=== PATIENT | male | born 1960 | race Caucasian/White ===

== ENCOUNTER 2017-05-13 19:31 | Emergency (ER) | payer MEDICARE, MEDICAID ==
[~2017-05-13] VITALS: Ht 190.5 cm; Wt 81.6 kg
[~2017-05-13 19:31] MED LIST: 8 HOUR PAIN RE650 M1 PO; ACETAMINOPHEN500 M3 PO; ALBUTEROL2 PUFFS/17 IN; ANORO ELLIPTA1 POW IH; ATIVAN1 M1 PO; AUGMENTIN 500 M1 TAB PO; AVPAK AZITHROM250 MG PO; BENADRYL 50MG C50 MG PO; BENZTROPINE 1MG1 MG PO; BENZTROPINE1 MG PO; CEFEPIME2 GM/100 M IV; COGENTIN GENERIC1 MG PO; DEPAKOTE 250MG250 MG PO; DEPAKOTE 500MG500 MG PO; DEPAKOTE DR500 MG PO; DESYREL50 MG PO; GENTAMICIN SUL IV; HALOPERIDOL 5MG.5 MG PO; HYDROXYZINE 25M25 MG PO; IBU800 M1 PO; IPRATROPIUM BROM3 M1 IH; LEVAQUIN500 MG PO; MEGACE ES625 MG/5 M PO; OLANZAPINE5 MG PO; OXYGEN IH; PREDNISONE 20MG20 MG PO; PREDNISONE20 MG PO; PROAIR HFA0.09 MG/AC IH; PROMETHAZINE HC25 M1 PO; PROVENTIL0.09 MG/A1 IH; PROZAC 20MG CAP20 MG PO; ZITHROMAX Z PA250 MG PO; ZOFRAN ODT8 MG PO; ZYPREXA20 M1 PO; [UNRECOGNIZED DRUG - OTHER] PO
--- OUTSIDE RECORDS SUMMARY | 2017-05-13 20:07 | External Medical Summary Rpt ---
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8 OTHER INJURY OF UNSPECIFIED BODY REGION W19.XXXA UNSPECIFIED FALL, INITIAL ENCOUNTER Allergies, Adverse Reactions, Alerts Type Allergy to substance Adverse Reaction to Substance Substance Reaction Severity NO KNOWN ALLERGIES Unknown Unknown Medications Na ND Rx Da Fi Fi Am Da Di Ph RX Ph St me C No te ll ll ou ys ag ar # ys at rm s nt no ma ic us Or Da si cy ia de te s n re d SO 00 08 0 No GIOVANNI 00 -0 -M 90 7- Lo ED 04 20 ng RO 72 13 er L 2 12 Ac 5 ti MG ve AL CE 00 08 0 No FT 40 -0 RI 97 7- Lo AX 33 20 ng ON 30 13 er E 4 1 Ac GM ti ve AL SO 00 08 0 No DI 40 -0 UM 97 7- Lo 10 20 ng CH 16 13 er LO 6 RI Ac DE ti ve 0. 9% SO LN LO 00 10 10 3 30 5 ME 59 AR Ac RA 59 -0 -0 .0 D 91 NO ti ZE 10 4- 4- 00 CA 69 LD ve PA 24 20 20 RE 8 M 11 11 11 RI 1 0 PH CH MG AR AR MA D TA CY W BL ET LL C 00 10 10 3 11 2 ME 59 AR Ac 12 -0 -0 8. D 91 NO ti 10 4- 4- 00 CA 56 LD ve 63 20 20 0 RE 6 80 11 11 RI 4 PH CH AR AR MA D CY W LL C DI 00 10 10 3 30 5 ME 59 AR Ac PH 90 -0 -0 .0 D 91 NO ti EN 42 4- 4- 00 CA 54 LD ve HY 05 [address] 66 11 11 RI AM 1 PH CH IN AR AR E MA D 50 CY W MG LL C CA PS UL E CA 00 10 10 3 60 5 ME 59 AR Ac LC 90 -0 -0 .0 D 91 NO ti IU 41 4- 4- 00 CA 54 LD ve M 25 20 20 RE 4 AN 89 11 11 RI TA 2 PH CH CI AR AR D MA D 50 CY W 0 MG LL C CH W TA B MA 00 10 10 3 40 5 ME 59 AR Ac PA 90 -0 -0 .0 D 91 NO ti P 41 4- 4- 00 CA 50 LD ve 32 98 20 20 RE 6 5 26 11 11 RI MG 1 PH CH AR AR TA MA D BL CY W ET LL C LO 00 09 09 3 15 3 ME 59 AR Ac RA 59 -0 -0 .0 D 13 NO ti ZE 10 6- 6- 00 CA 46 LD ve PA 24 20 20 RE 3 M 11 11 11 RI 1 0 PH CH MG AR AR MA D TA CY W BL ET LL C 00 08 08 3 11 5 ME 58 AR Ac 12 -2 -2 8. D 80 NO ti 10 5- 5- 00 CA 71 LD ve 63 20 20 0 RE 2 80 11 11 RI 4 PH CH AR AR MA D CY W LL C LO 00 08 08 3 21 7 ME 58 AR Ac RA 59 -0 -1 .0 D 16 NO ti ZE 10 3- 0- 00 CA 17 LD ve PA 24 20 20 RE 0 M 01 11 11 RI 0. 0 PH CH 5 AR AR MG MA D CY W TA BL LL ET C LO 00 08 08 3 21 7 ME 58 AR Ac RA 59 -0 -0 .0 D 16 NO ti ZE 10 3- 3- 00 CA 17 LD ve PA 24 20 20 RE 0 M 01 11 11 RI 0. 0 PH CH 5 AR AR MG MA D CY W TA BL LL ET C DI 00 08 08 3 20 5 ME 58 AR Ac PH 90 -0 -0 .0 D 16 NO ti EN 42 3- 3- 00 CA 24 LD ve HY 05 [address] 66 11 11 RI AM 1 PH CH IN AR AR E MA D 50 CY W MG LL C CA PS UL E 00 07 07 3 14 14 ME 57 AR Ac 06 -2 -2 .0 D 82 NO ti 76 2- 2- 00 CA 69 LD ve 07 20 20 RE 9 03 11 11 RI 0 PH CH AR AR MA D CY W LL C TH 00 08 08 3 30 30 ME 48 AR Ac ER 90 -3 -3 .0 D 06 NO ti A 40 0- 0- 00 CA 06 LD ve TA 53 20 20 RE 2 BL 96 10 10 RI ET 1 PH CH AR AR MA D CY W LL C TH 00 05 07 3 30 30 ME 44 AR Ac ER 90 -0 -3 .0 D 90 NO ti A 40 1- 1- 00 CA 09 LD ve TA 53 20 20 RE 6 BL 96 10 10 RI ET 1 PH CH AR AR MA D CY W LL C TH 00 05 07 3 30 30 ME 44 AR Ac ER 90 -0 -0 .0 D 90 NO ti A 40 1- 1- 00 CA 09 LD ve TA 53 20 20 RE 6 BL 96 10 10 RI ET 1 PH CH AR AR MA D CY W LL C TH 00 05 05 3 30 30 ME 44 AR Ac ER 90 -0 -3 .0 D 90 NO ti A 40 1- 1- 00 CA 09 LD ve TA 53 20 20 RE 6 BL 96 10 10 RI ET 1 PH CH AR AR MA D CY W LL C TH 00 05 05 3 30 30 ME 44 AR Ac ER 90 -0 -0 .0 D 90 NO ti A 40 1- 1- 00 CA 09 LD ve TA 53 20 20 RE 6 BL 96 10 10 RI ET 1 PH CH AR AR MA D CY W LL C TH 00 01 04 3 30 30 ME 41 AR Ac ER 90 -0 -0 .0 D 67 NO ti A 40 1- 1- 00 CA 76 LD ve TA 53 20 20 RE 3 BL 96 10 10 RI ET 1 PH CH AR AR MA D CY W LL C TH 00 01 03 3 30 30 ME 41 AR Ac ER 90 -0 -0 .0 D 67 NO ti A 40 1- 2- 00 CA 76 LD ve TA 53 20 20 RE 3 BL 96 10 10 RI ET 1 PH CH AR AR MA D CY W LL C Vital Signs 05-09-2013 10:34 Name Value Interpretat Reference Comment ion Range BP 86 mm[Hg] Diastolic BP Systolic 151 mm[Hg] Heart 74 /min Rate/Pulse O2% 92 % 05-09-2013 10:32 Name Value Interpretat Reference Comment ion Range Respiratory 20 /min Rate 05-09-2013 08:25 Name Value Interpretat Reference Comment ion Range BP 52 mm[Hg] Diastolic BP Systolic 117 mm[Hg] Heart 85 /min Rate/Pulse Respiratory 20 /min Rate 05-09-2013 07:52 Name Value Interpretat Reference Comment ion Range O2% 97 % 01-15-2013 14:28 Name Value Interpretat Reference Comment ion Range Body 98.7 [degF] Temperature BP 71 mm[Hg] Diastolic BP Systolic 110 mm[Hg] Heart 60 /min Rate/Pulse O2% 93 % Respiratory 16 /min Rate 01-15-2013 13:54 Name Value Interpretat Reference Comment ion Range BP 49 mm[Hg] Diastolic BP Systolic 149 mm[Hg] Heart 66 /min Rate/Pulse O2% 95 % Respiratory 18 /min Rate Results Labs Lab Lab Date Result Refere Interp Status Commen Order Detail nces retati t Range on ARTERIAL BLOOD GAS (05-09-2013 08:43) ARTERIA 7.42 7.35-7. complet L PH 013 MMOL/L 45 ed 08:43 ARTERIA 46.6 35.0-45 complet L PCO2 013 MMHG .0 ed 08:43 ARTERIA 75.9 80-100 complet L PO2 013 MMHG ed 08:43 ARTERIA 29.6 22.0-26 complet L HCO3 013 MMOL/L .0 ed 08:43 ARTERIA 31.0 23-27 complet L TCO2 013 MMOL/L ed 08:43 Base 5.2 -2.4-+2 complet excess 013 MMOL/L .3 ed BldA-sC 08:43 nc ARTERIA 95.6 % 90-100 complet L O2 013 ed SAT 08:43 OXYGEN 2LPM complet 013 ed 08:43 Arteria N/A complet l 013 ed patency 08:43 Wrist a SOURCE R complet 013 BRACHIA ed 08:43 L BASIC METABOLIC PANEL (05-09-2013 07:55) Glucose 92 74-106 complet 013 mg/dL ed Bld-mCn 07:55 c BUN 20 7-18 complet Bld-mCn 013 mg/dL ed c 07:55 Creat 1.2 0.8-1.3 complet SerPl-m 013 mg/dL ed Cnc 07:55 ESTIMAT 81 50-200 complet ED 013 ML/MIN ed CREATIN 07:55 INE CLEARAN CE GFR 63 Greater complet (ESTIMA 013 ML/MIN than ed RIMA) 07:55 60 Sodium 145 136-145 complet SerPl-s 013 mmoL/L ed Cnc 07:55 Potassi 3.9 3.5-5.1 complet um 013 mmoL/L ed SerPl-s 07:55 Cnc Chlorid 107 98-107 complet e 013 mmoL/L ed SerPl-s 07:55 Cnc CO2 31 21.0-32 complet SerPl-s 013 mmoL/L .0 ed Cnc 07:55 Calcium 8.7 8.5-10. complet 013 mg/dL 1 ed SerPl-m 07:55 Cnc LIVER PROFILE (05-09-2013 07:55) Prot 7.8 6.4-8.2 complet SerPl-m 013 gm/dL ed Cnc 07:55 Albumin 3.0 3.4-5.0 complet 013 gm/dL ed SerPl-m 07:55 Cnc Bilirub 0.6 0.2-1.0 complet 013 mg/dL ed SerPl-m 07:55 Cnc Bilirub 0.1 0.0-0.2 complet Direct 013 mg/dL ed 07:55 SerPl-m Cnc Bilirub 05-09-2 0.5 0-0.9 complet 013 mg/dL ed Indirec 07:55 t SerPl-m Cnc AST 05-09-2 10 U/L 15-37 complet SerPl-c 013 ed Cnc 07:55 ALT 05-09-2 23 U/L 30-65 complet SerPl-c 013 ed Cnc 07:55 ALP 07-2 92 U/L 50-136 complet SerPl-c 013 ed Cnc 07:55 Valproate SerPl-mCnc (05-09-2013 07:55) Valproa 05-09-2 68.9 50-100 complet te 013 mcg/mL ed SerPl-m 07:55 Cnc CBC with AUTO DIFF (05-09-2013 07:55) WBC # 08-07-2 12.3 4.8-10. complet Bld 013 K/MM3 8 ed Auto 07:55 RBC # [id number] 4.60 4.6-6.2 complet Bld 013 M/mm3 ed Auto 07:55 Hgb 07-2 15.1 14.1-18 complet Bld-mCn 013 g/dL .0 ed c 07:55 Hct Fr 05-09-2 46.7 % 42.0-52 complet Bld 013 .0 ed 07:55 MCV RBC 07-2 101.6 82.2-97 complet 013 fl .8 ed 07:55 MCH RBC 07-2 32.8 pg 27-31.2 complet Qn 013 ed Auto 07:55 MEAN 05-09-2 32.2 31.8-35 complet CORPUSC 013 g/dl .4 ed ULAR 07:55 HGB CONC RDW RBC 07-2 15.0 % 11.5-17 complet Auto 013 .5 ed 07:55 Platele 08-07-2 139 142-424 complet t Bld 013 K/mm3 ed Ql 07:55 Manual MEAN 05-09-2 8.2 fl 7.4-10. complet PLATELE 013 4 ed T 07:55 VOLUME Granulo 05-09-2 61.5 % 37.0-80 complet cytes 013 .0 ed Fr Bld 07:55 Auto LYMPH % 05-09-2 24.9 % 10-50 complet 013 ed 07:55 Monocyt 08-07-2 12.7 % 1.7-9.3 complet es Fr 013 ed Bld 07:55 Auto Eosinop 08-07-2 0.3 % 0.1-12. complet hil Fr 013 0 ed Bld 07:55 Auto Basophi 08-07-2 0.5 % 0.1-2.0 complet ls Fr 013 ed Bld 07:55 Auto Granulo 08-07-2 7.6 1.3-8.0 complet cytes # 013 K/mm3 ed Bld 07:55 Auto Lymphoc 08-07-2 3.1 0.7-4.5 complet ytes Fr 013 K/mm3 ed Bld 07:55 Auto Monocyt 08-07-2 1.6 0.1-1.0 complet es # 013 K/mm3 ed Bld 07:55 Auto Eosinop 08-07-2 0.0 0.0-0.4 complet hil # 013 K/mm3 ed Bld 07:55 Auto Basophi 08-07-2 0.1 0-0.2 complet ls # 013 K/MM3 ed Bld 07:55 Auto Encounters Encounter Start End Date Code Location Performer Type Date Emergency FABIANA Bergeron MD (ER) 3 07:53 3 11:07 [facility] Emergency FABIANA Hair (ER) 3 13:32 3 14:[address] [facility] Jered Shay
--- OUTSIDE RECORDS SUMMARY | 2017-05-13 20:07 | External Medical Summary Rpt ---
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 Emergency FABIANA Hair (ER) 3 13:32 3 14:30 [facility] Jered Shay
--- OUTSIDE RECORDS SUMMARY | 2017-05-13 20:08 | External Medical Summary Rpt ---
Demographics Preferred Language Sinhala Marital Status Unknown Sikhism Affiliation Unknown Race Unknown Ethnic Group Unknown Author Author , MINA RAMOS Address Unknown Phone [email or web address] Care Team Providers Care Pump Tester Name Role Phone [facility], [facility] [employer] Purpose Continuity of Care Document - 12-02-2009 through 2016 Medications Na ND Rx Da Fi Fi Am Da Di Ph RX Ph St me C No te ll ll ou ys ag ar # ys at rm s nt no ma ic us Or Da si cy ia de te s n re d MA 00 10 10 3 40 5 ME 59 AR Ac PA 90 -0 -0 .0 D 91 NO ti P 41 4- 4- 00 CA 50 LD ve 32 98 20 20 RE 6 5 26 11 11 RI MG 1 PH CH AR AR TA MA D BL CY W ET LL C CA 00 10 10 3 60 5 ME 59 AR Ac LC 90 -0 -0 .0 D 91 NO ti IU 41 4- 4- 00 CA 54 LD ve M 25 20 20 RE 4 AN 89 11 11 RI TA 2 PH CH CI AR AR D MA D 50 CY W 0 MG LL C CH W TA B DI 00 10 10 3 30 5 ME 59 AR Ac PH 90 -0 -0 .0 D 91 NO ti EN 42 4- 4- 00 CA 54 LD ve HY 05 [address] 66 11 11 RI AM 1 PH CH IN AR AR E MA D 50 CY W MG LL C CA PS UL E 00 10 10 3 11 2 ME 59 AR Ac 12 -0 -0 8. D 91 NO ti 10 4- 4- 00 CA 56 LD ve 63 20 20 0 RE 6 80 11 11 RI 4 PH CH AR AR MA D CY W LL C LO 00 10 10 3 30 5 ME 59 AR Ac RA 59 -0 -0 .0 D 91 NO ti ZE 10 4- 4- 00 CA 69 LD ve PA 24 20 20 RE 8 M 11 11 11 RI 1 0 PH CH MG AR AR MA D TA CY W BL ET LL C LO 00 09 09 [...] .0 D 90 NO ti A 40 CA 09 LD ve TA 53 20 20 RE 6 BL 96 10 10 RI ET 1 PH CH AR AR MA D CY W LL C TH 00 01 04 3 30 30 ME 41 AR Ac ER 90 -0 -0 .0 D 67 NO ti A 40 CA 76 LD ve TA 53 20 20 RE 3 BL 96 10 10 RI ET 1 PH CH AR AR MA D CY W LL C TH 00 01 03 3 30 30 ME 41 AR Ac ER 90 -0 -0 .0 D 67 NO ti A 40 2 CA 76 LD ve TA 53 20 20 RE 3 BL 96 10 10 RI ET 1 PH CH AR AR MA D CY W LL C
--- OUTSIDE RECORDS SUMMARY | 2017-05-13 20:08 | External Medical Summary Rpt ---
Demographics Preferred Language Korean Marital Status Unknown Mormon Affiliation Unknown Race Unknown Ethnic Group Unknown Author MINA Merida Address Unknown Phone Immunization No patient found.
--- OUTSIDE RECORDS SUMMARY | 2017-05-13 20:08 | External Medical Summary Rpt ---
Demographics Preferred Language French Marital Status Unknown Alevism Affiliation Unknown Race Unknown Ethnic Group Unknown Author MINA Merida Address Unknown Phone Immunization No patient found.
--- OUTSIDE RECORDS SUMMARY | 2017-05-13 20:08 | External Medical Summary Rpt ---
Demographics Preferred Language Ukrainian Marital Status Unknown Adventist Affiliation Unknown Race Unknown Ethnic Group Unknown Author Author , MINA RAMOS Address Unknown Phone [email or web address] Care Team Providers Care Senior Warehouse Clerk Name Role Phone [facility], [facility] [employer] Purpose Continuity of Care Document - 12-02-2009 [...]
[2017-05-13 20:39] LABS: LYMPH # 3.4 K/mm3 (0.7-4.5); LYMPH % 41.6 % (10-50)
[2017-05-13 20:46] LABS: HEMOGLOBIN 15.5 g/dL (14.1-18.0)
[2017-05-13 21:03] LABS: BUN 20 mg/dL (7-18)
--- NOTE | 2017-05-13 21:05 | Emergency Room Report ---
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 N Clinical Suspician of Infection? N Mental Status: 1 - Regular (Normal Baseline) Sepsis Risk:Low Sepsis Risk Have you (or family members/close friends) recently traveled outside the [place]? N If Yes, where/when: Have you had exposure to infectious disease within the past month? N TB? Other? Specify: Source patient, RN notes reviewed, EMS, [place] [facility] records, old records Exam Limitations no limitations Comment pt with sob with cough and low pulse oxy at detention and sent for eval - near syncope reported Cardiac Chest Pain Chest pain indicative of cardiac No Timing/Duration this evening Severity moderate ALLERGIES Coded Allergies: No Known Drug Allergies (-- 08/26/16) Home Medications Active Scripts Device (Oxygen (Concentrator)) 1 UNIT IH PRN PRN SHORTNESS OF BREATH #1 DEV Ref 5 Prov: 02/16/16 CEFEPIME HCL/DEXTROSE, ISO-OSM (Cefepime 2 Gm Injection) 2 GM IV Q12 28 Days Prov: 08/31/16 GENTAMICIN IN NACL, ISO-OSM (Gentamicin 90 MG/Ns 100 Ml Pb) 400 mg IV DAILY #14 ML Prov: 08/31/16 Reported Medications Acetaminophen (Acetaminophen Extra Strength) 500 MG PO Q4HP PRN PAIN Albuterol Sulfate (Proair Hfa) 1-2 PUFF IH Q4HP PRN BREATHING PROMETHAZINE HCL (Promethazine 25mg Tab) 25 MG PO Q8HP PRN NAUSEA/VOMITING BENZTROPINE MESYLATE (Benztropine 1MG Tab) 1 MG PO BID Divalproex Sodium (Depakote) 750 MG PO QHS Fluoxetine Hcl (Prozac 20MG Capsule(Generic)) 20 MG PO DAILY ALBUTEROL-IPRATROPIUM (Iprat-Albut 0.5-3(2.5) MG/3 Ml) 3 ML IH QID Olanzapine (Olanzapine 5MG Tab) 20 MG PO BID Divalproex Sodium (Depakote Dr) 500 MG PO DAILY History Medical History General CAD? No Angina: No TN: No Hypertension? No Hyperlipidemia? No CHF? No DVT? No PE? No COPD? Yes Asthma? No Anemia? No GERD? No Gastric ulcers? No GI Bleed? No Hernia? No Thyroid Problems? No Hypothyroidism? No CVA? No Seizures? Yes Diabetes? No Renal Insuffiency? No End Stage Renal Disease? No UTI? No Stones? No BPH? No GB Disease: No Nephritic Syndrome? No Asplenia? No Hepatitis? No Sickle Cell Disease? No Arthritis? No Migraines? No Cataracts? No Glaucoma? No MRSA? No HIV? No TB? No Anxiety? No Depression? No Cancer? No More? Yes Additional hx: SCHIZOPHRENIA Immunization Hx DT/Tetanus Unknown Flu 2015-17FSN Pneumonia Refuses Surgical Hx Previous Surgery?N Family History Family Hx Diabetes No CAD Yes Hypertension No Hyperlipidemia No Cancer Yes TB No Social History Smoking Hx Smoker: Current Every Day Smoker Tobacco: Yes Type Cigarettes Packs/day < 1 Pack Alcohol Alcohol: No Drugs none Review of Systems All Other Systems Reviewed and Negative Constitutional see HPI, denies fever, weakness Eyes denies drainage ENT denies: ear discharge, epistaxis, throat pain. Respiratory see HPI, cough, shortness of breath, denies wheezing Cardiovascular see HPI, chest pain, denies palpitations, denies syncope Gastrointestinal denies abdominal pain, denies diarrhea, denies vomiting Genitourinary denies: dysuria, frequency, hesitancy, hematuria. Musculoskeletal denies back pain, denies joint pain, denies joint swelling, denies neck pain Skin denies rash Psychiatric/Neurological denies headache, denies seizure Physical Exam Vital Signs Vital Signs Date Time Temp Pulse Resp B/P Pulse O2 O2 Flow FiO2 Ox Delivery Rate 05/13 2355 59 18 141/79 93 05/137 62 18 148/82 87 05/13 2150 99.0 59 18 148/82 95 05/13 2037 98.4 57 14 132/82 94 05/13 2036 14 99 2 05/13 193 98.2 57 14 125/81 99 2 - WBC >12,000 or <4,000 or 10% bands? 2 or more SIRS Criteria Met? B/P:141/79 MAP:95 Creatinine >2.0? UA output<0.5ml/kg/hr for 2 hrs? Platelet count >100,000? Lactate >2.0mmol/1? INR >1.2 or PTT > than 60 sec? Evidence of Organ Dysfunction? Provider documented clinical suspician of infection? N Sepsis Criteria Count: 0 Sepsis Risk: Low Sepsis Risk General Appearance no apparent distress Eye Exam - bilateral eye PERRL, bilateral eye EOMI Ear, Nose, Throat normal ENT inspection Neck supple Respiratory Status No: respiratory distress. Lung Sounds bilateral: rhonchi. Cardiovascular regular rate/rhythm, no gallop, no JVD, no rub, systolic murmur Peripheral Pulses Pulses normal Yes Gastrointestinal soft Extremities normal inspection, no calf tenderness Strength 4 Upper Ext (L), 4 Upper Ext (R), 4 Lower Ext (L), 4 Lower Ext (R) Neurologic alert, leather case finisher II-XII nml as tested, no motor/sensory deficits Reflexes Reflexes normal No Mental status normal mood/affect Skin intact Medical Decision Making LABS/Meds/Orders Pt receiving controlled substance in ED? No Results/Orders Laboratory Tests 05/13/17 2020: Sodium 145, Potassium 4.1, Chloride 110 H, Carbon Dioxide 35 H, BUN 20 H, Creatinine 1.0, Estimated Creat Clear 93, Estimated GFR (MDRD) 77, Glucose 118 H, Calcium 8.8, Total Bilirubin 0.3, AST 16, ALT 14, Alkaline Phosphatase 67, Creatine Kinase 72, CK-MB (CK-2) Rel Index 0.8, CK and CKMB Interp 0.6, Troponin I < 0.02, Total Protein 6.5, Albumin 3.2 L, Globulin 3.3 H, Albumin/Globulin Ratio 1.0 L, D-Dimer < 100, WBC 8.1, RBC 4.67, Hgb 15.5, Hct 48.3, MCV 103.4 H , RDW 15.7, Plt Count 91 L, MPV 9.1, Gran % 47.4, Gran # 3.8, Lymphocytes % 41.6, Monocytes % 8.6, Eosinophils % 1.9, Basophils % 0.6, Lymphocytes # 3.4, Monocytes # 0.7, Eosinophils # 0.2, Basophils # 0.1, PUBS MCHC 31.8, MCH 32.9 H , Valproic Acid 67.2 Current Medication Orders Sig/Brittani Start time Last Medication Dose Route Stop Time Status Admin Ceftriaxone Sodium 1 GM ONCE ONE 05/14 0015 AC Sodium Chloride 50 ML IV 05/14 0044 Levofloxacin 500 MG ONCE ONE 05/145 AC PO 05/14 0016 Methylprednisolone 125 MG ONCE ONE 05/145 AC Sodium Succinate IV 05/14 16 Aspirin 324 MG ONCE ONE 05/13 2000 DC 05/13 PO 05/13 Sodium Chloride 10 ML PRN PRN 05/13 2000 AC IV 05/14 1950 Aspirin 0 .STK-MED ONE 05/13 1940 DC .ROUTE Orders Procedure Date/time Status VALPROIC ACID (DEPAKENE) 05/13 2119 Complete D-DIMER 05/13 2119 Complete CHEST-PORTABLE 05/13 1951 Active IV SALINE LOCK 05/[address] 05/13 1951 Active CBC WITH AUTO DIFF 05/13 1951 Complete CARDIAC ENZYMES 05/13 1951 Complete CHEM 12 PROFILE 05/13 1951 Complete 12 LEAD EKG-RANCHO (INITIAL) 05/13 1933 Active CM/EKG CM/maintenance advisor Rhythm Sinus Bradycardia EKG non-spec. ST/Twave chgs XRAY/CT/US XRAY/CT/US XRAY chest XR interpretation by reviewed by me, discussed w/radiologist Xray Results normal/NAD Departure Departure Time of Disposition 11 Disposition DC Home or Self Care(routine) Clinical Impression Primary Impression: Bronchitis Condition STABLE Patient Instructions DI for Cough -- Adult Additional Instructions fluids and use meds and limit tob use and recheck if needed Discharge Counseling Counseled pt/family regarding diagnosis, test results, medications/RX, follow up needs, tobacco counseling,> 3min Prescriptions Current Visit Scripts Prednisone (Prednisone 20MG) 20 MG PO BID #10 TAB Azithromycin (Zithromycin (Z-JACINTO) 250MG Tab) 250 MG PO DAILY #6 TAB TAKE TWO (2) TABLETS ON DAY 1, THEN ONE (1) TABLET DAY #2 THRU #5 ED Critical [place] [address]14
--- NOTE | 2017-05-13 21:05 | Emergency Room Report ---
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 N Clinical Suspician of Infection? N Mental Status: 1 - Regular (Normal Baseline) Sepsis Risk:Low Sepsis Risk Have you (or family members/close friends) recently traveled outside the [place]? N If Yes, where/when: Have you had exposure to infectious disease within the past month? N TB? Other? Specify: Source patient, RN notes reviewed, EMS, correction records, old records Exam Limitations no limitations Comment pt with sob with cough and low pulse oxy at snf and sent for eval - near syncope reported Cardiac Chest Pain Chest pain indicative of cardiac No Timing/Duration this evening Severity moderate ALLERGIES Coded Allergies: No Known Drug Allergies (-- 08/26/16) Home Medications Active Scripts Device (Oxygen (Concentrator)) 1 UNIT IH PRN PRN SHORTNESS OF BREATH #1 DEV Ref 5 Prov: 02/16/16 CEFEPIME HCL/DEXTROSE, ISO-OSM (Cefepime 2 Gm Injection) 2 GM IV Q12 28 Days Prov: 08/31/16 GENTAMICIN IN NACL, ISO-OSM (Gentamicin 90 MG/Ns 100 Ml Pb) 400 mg IV DAILY #14 ML Prov: 08/31/16 Reported Medications Acetaminophen (Acetaminophen Extra Strength) 500 MG PO Q4HP PRN PAIN Albuterol Sulfate (Proair Hfa) 1-2 PUFF IH Q4HP PRN BREATHING PROMETHAZINE HCL (Promethazine 25mg Tab) 25 MG PO Q8HP PRN NAUSEA/VOMITING BENZTROPINE MESYLATE (Benztropine 1MG Tab) 1 MG PO BID Divalproex Sodium (Depakote) 750 MG PO QHS Fluoxetine Hcl (Prozac 20MG Capsule(Generic)) 20 MG PO DAILY ALBUTEROL-IPRATROPIUM (Iprat-Albut 0.5-3(2.5) MG/3 Ml) 3 ML IH QID Olanzapine (Olanzapine 5MG Tab) 20 MG PO BID Divalproex Sodium (Depakote Dr) 500 MG PO DAILY History Medical History General CAD? No Angina: No IN: No Hypertension? No Hyperlipidemia? No CHF? No DVT? No PE? No COPD? Yes Asthma? No Anemia? No GERD? No Gastric ulcers? No GI Bleed? No Hernia? No Thyroid Problems? No Hypothyroidism? No CVA? No Seizures? Yes Diabetes? No Renal Insuffiency? No End Stage Renal Disease? No UTI? No Stones? No BPH? No GB Disease: No Nephritic Syndrome? No Asplenia? No Hepatitis? No Sickle Cell Disease? No Arthritis? No Migraines? No Cataracts? No Glaucoma? No MRSA? No HIV? No TB? No Anxiety? No Depression? No Cancer? No More? Yes Additional hx: SCHIZOPHRENIA Immunization Hx DT/Tetanus Unknown Flu [id number] Pneumonia Refuses Surgical Hx Previous Surgery?N Family History Family Hx Diabetes No CAD Yes Hypertension No Hyperlipidemia No Cancer Yes TB No Social History Smoking Hx Smoker: Current Every Day Smoker Tobacco: Yes Type Cigarettes Packs/day < 1 Pack Alcohol Alcohol: No Drugs none Review of Systems All Other Systems Reviewed and Negative Constitutional see HPI, denies fever, weakness Eyes denies drainage ENT denies: ear discharge, epistaxis, throat pain. Respiratory see HPI, cough, shortness of breath, denies wheezing Cardiovascular see HPI, chest pain, denies palpitations, denies syncope Gastrointestinal denies abdominal pain, denies diarrhea, denies vomiting Genitourinary denies: dysuria, frequency, hesitancy, hematuria. Musculoskeletal denies back pain, denies joint pain, denies joint swelling, denies neck pain Skin denies rash Psychiatric/Neurological denies headache, denies seizure Physical Exam Vital Signs Vital Signs Date Time Temp Pulse Resp B/P Pulse O2 O2 Flow FiO2 Ox Delivery Rate 05/13 2355 59 18 141/79 93 05/137 62 18 148/82 87 05/13 2150 99.0 59 18 148/82 95 05/13 2037 98.4 57 14 132/82 94 05/13 2036 14 99 2 05/13 193 98.2 57 14 125/81 99 2 - WBC >12,000 or <4,000 or 10% bands? 2 or more SIRS Criteria Met? B/P:141/79 MAP:95 Creatinine >2.0? UA output<0.5ml/kg/hr for 2 hrs? Platelet count >100,000? Lactate >2.0mmol/1? INR >1.2 or PTT > than 60 sec? Evidence of Organ Dysfunction? Provider documented clinical suspician of infection? N Sepsis Criteria Count: 0 Sepsis Risk: Low Sepsis Risk General Appearance no apparent distress Eye Exam - bilateral eye PERRL, bilateral eye EOMI Ear, Nose, Throat normal ENT inspection Neck supple Respiratory Status No: respiratory distress. Lung Sounds bilateral: rhonchi. 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 No Results/Orders Laboratory Tests 05/13/17 2020: Sodium 145, Potassium 4.1, Chloride 110 H, Carbon Dioxide 35 H, BUN 20 H, Creatinine 1.0, Estimated Creat Clear 93, Estimated GFR (MDRD) 77, Glucose 118 H, Calcium 8.8, Total Bilirubin 0.3, AST 16, ALT 14, Alkaline Phosphatase 67, Creatine Kinase 72, CK-MB (CK-2) Rel Index 0.8, CK and CKMB Interp 0.6, Troponin I < 0.02, Total Protein 6.5, Albumin 3.2 L, Globulin 3.3 H, Albumin/Globulin Ratio 1.0 L, D-Dimer < 100, WBC 8.1, RBC 4.67, Hgb 15.5, Hct 48.3, MCV 103.4 H , RDW 15.7, Plt Count 91 L, MPV 9.1, Gran % 47.4, Gran # 3.8, Lymphocytes % 41.6, Monocytes % 8.6, Eosinophils % 1.9, Basophils % 0.6, Lymphocytes # 3.4, Monocytes # 0.7, Eosinophils # 0.2, Basophils # 0.1, PUBS MCHC 31.8, MCH 32.9 H , Valproic Acid 67.2 Current Medication Orders Sig/Brittani Start time Last Medication Dose Route Stop Time Status Admin Ceftriaxone Sodium 1 GM ONCE ONE 05/14 0015 AC Sodium Chloride 50 ML IV 05/14 0044 Levofloxacin 500 MG ONCE ONE 05/145 AC PO 05/14 0016 Methylprednisolone 125 MG ONCE ONE 05/145 AC Sodium Succinate IV 05/14 16 Aspirin 324 MG ONCE ONE 05/13 2000 DC 05/13 PO 05/13 Sodium Chloride 10 ML PRN PRN 05/13 2000 AC IV 05/14 1950 Aspirin 0 .STK-MED ONE 05/13 1940 DC .ROUTE Orders Procedure Date/time Status VALPROIC ACID (DEPAKENE) 05/13 2119 Complete D-DIMER 05/13 2119 Complete CHEST-PORTABLE 05/13 1951 Active IV SALINE LOCK 05/13 1951 Active 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 ST/Twave chgs XRAY/CT/US XRAY/CT/US XRAY chest XR interpretation by reviewed by me, discussed w/radiologist Xray Results normal/NAD Departure Departure Time of Disposition 11 Disposition DC Home or Self Care(routine) Clinical Impression Primary Impression: Bronchitis Condition STABLE Patient Instructions DI for Cough -- Adult Additional Instructions fluids and use meds and limit tob use and recheck if needed Discharge Counseling Counseled pt/family regarding diagnosis, test results, medications/RX, follow up needs, tobacco counseling,> 3min Prescriptions Current Visit Scripts Prednisone (Prednisone 20MG) 20 MG PO BID #10 TAB Azithromycin (Zithromycin (Z-JACINTO) 250MG Tab) 250 MG PO DAILY #6 TAB TAKE TWO (2) TABLETS ON DAY 1, THEN ONE (1) TABLET DAY #2 THRU #5 ED Critical Care Critical Care No at 0014
[2017-05-13 21:34] LABS: GFR (ESTIMATED) 77 ML/MIN (>60)
[2017-05-14] MEDS ORDERED: PREDNISONE 20MG20 MG PO (00:14)
[2017-05-14] MEDS ORDERED: ZITHROMAX Z PA250 MG PO (00:14)
[2017-05-14 00:38] VITALS: BP 124/76
--- NOTE | 2017-05-14 06:53 | RADIOLOGY REPORT PS360 ---
CHEST-PORTABLE HISTORY: CHEST TIGHTNESS ORDERING PHYSICIAN: Harjinder Bergeron MD PATIENT AGE: 56 years COMPARISON: 09/10/2016 FINDINGS: Increased density is present in both mid lung zones probably related to overlying soft tissue attenuation The cardiomediastinal silhouette and pulmonary vascularity are within normal limits. The lungs are clear without infiltrates, suspicious nodules, or pleural effusions. No acute bony abnormalities. IMPRESSION: No acute finding
[2017-05-21] MEDS ORDERED: PROVENTIL0.09 MG/A1 IH (18:49)
[2017-05-21] MEDS ORDERED: DOXYCYCLINE HY100 M4 PO (18:49)
[2017-05-21] MEDS ORDERED: PREDNISONE5 MG PO (18:49)
[2017-05-23] MEDS ORDERED: BREO ELLIPTA 21 EACH IH (08:53)
[2017-05-23] MEDS ORDERED: INCRUSE EL62.5 MCG/A IH (08:53)
[2017-05-23] MEDS ORDERED: PREDNISONE 20MG20 MG PO (08:53)
[2017-05-27] MEDS ORDERED: PREDNISONE 20MG20 MG PO (08:12)
[2017-05-27] MEDS ORDERED: BUPROPION HCL75 M1 PO (08:22)
== END 2017-05-14 00:44 | disposition home or self-care (01) ==
LOC: ER 19:31
PROVIDERS: Emergency Medicine
DX: J20.9 Acute bronchitis, unspecified (principal); Z72.0 Tobacco use; F20.9 Schizophrenia, unspecified